=== PATIENT | male | born 1990 | race American Indian/Alaskan Native ===

== ENCOUNTER 2016-10-21 02:44 | Emergency (ER) | payer SELFPAY ==
[2016-10-21] MEDS ORDERED: PERCOCET 5/325 PO ONE (03:26)
--- NOTE | 2016-10-21 03:26 | Emergency Department Report ---
HPI - General Chief Complaint: Dental/Oral Time Seen by Provider: 10/21/16 03:16 - HPI HPI: Patient reported that he had had pain for the last week and tonight he is to use. He said he was shaky; hadn't pulled it out. He is having pain. Denies any bleeding. Pain is 10 out of 10 and she was pulled this tooth. Blood pressure is 156/110 and he denies any headache, chest pain, dizziness or blurred vision. He does not have a history of high blood pressure. Over-the- counter pain medication taken without any relief. He does not have a dentist. ED Past Medical Hx - Past Medical History Previous Medical History?: No - Surgical History Past Surgical History?: No - Family History Family history: no significant, hypertension - Social History Smoking Status: Never Smoker Substance Use Type: None - Medications Home Medications: Home Medications Medication Instructions Recorded Confirmed Last Taken Type Acetaminophen/Codeine [Tylenol 1 tab PO Q6H PRN #12 tab 10/21/16 Unknown Rx /Codeine # 3 tab] Amoxicillin [Amoxicillin TAB] 875 mg PO BID #20 tablet 10/21/16 Unknown Rx Ibuprofen [Motrin] 600 mg PO Q8H PRN #15 tablet 10/21/16 Unknown Rx ED Review of Systems ROS: Stated complaint: TOOTHACHE Other details as noted in HPI Comment: All other systems reviewed and negative Constitutional: denies: chills, fever ENT: dental pain. denies: ear pain, throat pain, congestion Respiratory: no symptoms reported Cardiovascular: denies: chest pain, palpitations, edema, syncope Gastrointestinal: denies: abdominal pain, nausea, vomiting, diarrhea Musculoskeletal: denies: back pain, arthralgia Skin: denies: rash Neurological: denies: headache, weakness, numbness, paresthesias, confusion, abnormal gait, vertigo Physical Exam - Physical Exam Vital Signs: Vital Signs 10/21/16 02:54 Temperature 98.6 F Pulse Rate 52 L Respiratory 18 Rate Blood Pressure 156/110 Blood Pressure 156/110 [Right] O2 Sat by Pulse 99 Oximetry Vital Signs 10/21/16 10/21/16 02:54 04:08 Temperature 98.6 F 97.9 F Pulse Rate 52 L 55 L Respiratory 18 16 Rate Blood Pressure 156/110 Blood Pressure 156/110 146/90 [Right] O2 Sat by Pulse 99 97 Oximetry General: This is a 25-year-old male well-nourished well-developed in no acute distress. Physical Exam: Head: Normocephalic atraumatic Mouth: Moist, no pharyngeal exudate or erythema. Uvula is midline and oral airway is patent. No gingival enlargement Patient with medicine include # 5. No bleeding noted. Positive tenderness around 5. No facial swelling. No peritonsillar abscesses. Neck: Supple, no C-spine tenderness, no tracheal deviation. Nontender to palpate. no adenopathy Eyes: Bilateral pupils equal and reactive to light, bilateral EOM intact. Bilateral sclera and conjunctiva without injection. Normal accommodation Lungs: Clear to auscultate bilaterally no rhonchi wheezes or rales. Normal work of breathing extremity; No CCE. +2 pulses. No neurovascular compromise Cardiovascular: S1-S2, regular rate rhythm. No murmurs. Skin: clean Dry and intact no rash no lesions Psych: Normal mood and behavior ED Course Vital Signs 10/21/16 02:54 Temperature 98.6 F Pulse Rate 52 L Respiratory 18 Rate Blood Pressure 156/110 Blood Pressure 156/110 [Right] O2 Sat by Pulse 99 Oximetry Vital Signs 10/21/16 10/21/16 02:54 04:08 Temperature 98.6 F 97.9 F Pulse Rate 52 L 55 L Respiratory 18 16 Rate Blood Pressure 156/110 Blood Pressure 156/110 146/90 [Right] O2 Sat by Pulse 99 97 Oximetry - Reevaluation(s) Reevaluation #1: 10/21/16 04:26 Patient pressure was elevated in triage area. He does not have high blood pressure. He was given Percocet 5/325 mg suspect elevated blood pressures from pain. Reevaluation #2: 10/21/16 04:31 Blood pressure has normalized after pain management. ED Medical Decision Making - Medical Decision Making ED course: I discussed the patient and that he will need to follow-up with a dentist for him to [facility] that he needs to call this morning to schedule an appointment. Patient blood pressure has normalized since his pain is controlled. He was given Percocet 5/325 mg 2 tablets in the emergency room for pain. Patient with dental pain from pulling his own tooth. Patient discharged home with condition with prescription for Tylenol 3 and amoxicillin. Critical care attestation.: If time is entered above; I have spent that time in minutes in the direct care of this critically ill patient, excluding procedure time. ED Disposition Clinical Impression: Pain, dental, Elevated blood pressure reading Disposition: - TO HOME OR SELFCARE Is pt being admited?: No Does the pt Need Aspirin: No Condition: Stable Instructions: Toothache (ED) Additional Instructions: Follow up with dental clinic as instructed. Take Antibiotic as instructed Do not drive or operative machinery taking Tylenol 3 as this medication will cause drowsiness. Prescriptions: Acetaminophen/Codeine [Tylenol /Codeine # 3 tab] 1 tab PO Q6H PRN #12 tab PRN Reason: Toothache Amoxicillin [Amoxicillin TAB] 875 mg PO BID #20 tablet Ibuprofen [Motrin] 600 mg PO Q8H PRN #15 tablet PRN Reason: Pain Referrals: [facility] [Outside] - 10/21/16 [facility] [Outside] - 10/21/16 Forms: Work/School Release Form(ED)
[2016-10-21 04:10] VITALS: BP 146/90
== END 2016-10-21 04:44 | disposition home or self-care (01) ==
LOC: ED 02:44
DX: K08.89 Other specified disorders of teeth and supporting structures (principal); R03.0 Elevated blood-pressure reading, without diagnosis of hypertension
CPT/HCPCS: 99282